=== PATIENT | female | born 1965 | race Caucasian/White ===

== ENCOUNTER → 2018-10-10 | Outpatient (CLI) | payer BC ==
--- NOTE | 2018-10-12 11:13 | MM ---
Reason for exam: screening (asymptomatic). Last mammogram was performed 2 years and 4 months ago. History: Patient is postmenopausal. Family history of breast cancer in maternal aunt at age 50. Physical Findings: A clinical breast exam by your physician is recommended on an annual basis and results should be correlated with mammographic findings. MG Screening Mammo w CAD Bilateral CC and MLO view(s) were taken. Prior study comparison: June 25, 2016, bilateral MG screening mammo w CAD. June 21, 2015, bilateral MG screening mammo w CAD. There are scattered fibroglandular densities. No suspicious abnormality. No significant changes when compared with prior studies. ASSESSMENT: Negative, BI-RAD 1 RECOMMENDATION: Routine screening mammogram of both breasts in 1 year.
== END | disposition home or self-care (01) ==
LOC: RADMAMWWP 06:48
PROVIDERS: ATTEND Family Medicine
DX: Z12.31 Encounter for screening mammogram for malignant neoplasm of breast (principal)
CPT/HCPCS: 77067

== ENCOUNTER → 2020-02-22 | Outpatient (CLI) | payer BC ==
--- NOTE | 2020-02-23 09:20 | MM ---
Reason for exam: screening (asymptomatic). Last mammogram was performed 1 year and 4 months ago. History: Patient is postmenopausal. Family history of breast cancer in maternal aunt at age 50. Physical Findings: A clinical breast exam by your physician is recommended on an annual basis and results should be correlated with mammographic findings. MG 3D Screening Mammo W/Cad Bilateral CC and MLO view(s) were taken. XCCL view(s) were taken of the left breast. Prior study comparison: October 10, 2018, bilateral MG screening mammo w CAD. June 25, 2016, bilateral MG screening mammo w CAD. There are scattered fibroglandular densities. There is chronic nodularity in the left breast. Benign oil cyst and a few punctate calcifications. No significant changes when compared with prior studies. ASSESSMENT: Negative, BI-RAD 1 RECOMMENDATION: Routine screening mammogram of both breasts in 1 year.
== END | disposition home or self-care (01) ==
LOC: RADMAMWWP 07:07
PROVIDERS: ATTEND Family Medicine
DX: Z12.31 Encounter for screening mammogram for malignant neoplasm of breast (principal)
CPT/HCPCS: 77063; 77067

== ENCOUNTER → 2020-05-22 | Outpatient (CLI) | payer BC ==
--- NOTE | 2020-05-22 11:58 | US ---
EXAMINATION TYPE: US thyroid st tissue head/neck DATE OF EXAM: 05/22/2020 COMPARISON: NONE CLINICAL HISTORY: K11.20 Sialoadenitis. US thyroid, US neck at left palpable submandibular area, US P arotid Gland. Patient stated is being treated for sinusitis. 1) Thyroid GLAND SIZE: Right Lobe: 4.3 x 1.7 x 1.6 cm Overall Parenchyma: homogenous Left Lobe: 4.4 x 1.7 x 1.2 cm Overall Parenchyma: homogeneous Isthmus Thickness: 0.2 cm No nodules are seen in thyroid gland 2) Neck US for submandibular palpable: inferior to left gland is lymph node = 0.7 x 0.8 x 0.8cm. Mul tiple left lymph nodes are seen within this homogeneous glandular tissue, medially and superiorly. I nferior to right neck submandibular gland is lymph node = 1.5 x 0.8 x 0.4cm. 3) Parotid US: Anterior/ medial to right ear 2 lymph nodes are seen with larger node = 0.8 x 0.6 x 0 .4cm. No masses are seen in Left Parotid Gland. IMPRESSION: As above
== END | disposition home or self-care (01) ==
LOC: RADUSWWP 10:53
PROVIDERS: ATTEND Nurse Practitioner Adult Health
DX: K11.20 Sialoadenitis, unspecified (principal)
CPT/HCPCS: 76536

== ENCOUNTER → 2020-05-24 | Outpatient (CLI) | payer BC ==
--- NOTE | 2020-05-24 13:54 | CT ---
EXAMINATION TYPE: CT soft tissue neck w con DATE OF EXAM: 05/24/2020 COMPARISON: None HISTORY: Sialoadenitis, unspecified CT DLP: 607 mGycm CONTRAST: CT scan of the neck is performed with IV Contrast, patient injected with 100 ml mL of Isovue 300. Contrast enhanced CT of the neck was performed from the skull base through the lung apices. AIRWAY: The supraglottic, glottic, and subglottic portions of the airway appear patent and free of mass. SALIVARY GLANDS: At the site of clinical concern which corresponds to the left parotid gland there is edema and increased attenuation throughout the parotid gland likely reflective of sialoadenitis. The re is no evidence for abscess. The submandibular glands are free of mass or inflammatory process. THYROID GLAND: No nodules or masses seen. LYMPH NODES: No adenopathy seen greater than 1cm. LUNG APICES: No nodule or mass is seen. OTHER: Vascular structures are patent. No significant degenerative change of the cervical spine. N o abscess seen. IMPRESSION: Edema and mild inflammatory change of the left parotid gland felt to reflect parotitis.
== END | disposition home or self-care (01) ==
LOC: RADCTMAIN 13:00
PROVIDERS: ATTEND Family Medicine
DX: K11.20 Sialoadenitis, unspecified (principal)
CPT/HCPCS: 70491; Q9967

== ENCOUNTER → 2020-07-08 | Outpatient (CLI) | payer BC ==
--- NOTE | 2020-07-09 11:16 | US ---
EXAMINATION TYPE: US thyroid st tissue head/neck DATE OF EXAM: 07/08/2020 COMPARISON: 05/22/2020 ultrasound CLINICAL HISTORY: K11.20 SLALOADENITIS. Follow up on palpable/patient area of concern on left neck Left lateral neck scanned at area of concern. Multiple lymph nodes visualized. 1- within parotid= 1.1 x 0.6 x 0.5 cm 2- within lateral parotid= 0.9 x 0.6 x 0.5 cm 3- lateral neck = 1.4 x 0.6 x 0.4 cm No enlarging adenopathy is identified. Contralateral image taken. IMPRESSION: Left parotid appears normal with internal and adjacent small lymph nodes.
== END | disposition home or self-care (01) ==
LOC: RADUSWWP 16:47
PROVIDERS: ATTEND Family Medicine
DX: K11.20 Sialoadenitis, unspecified (principal)
CPT/HCPCS: 76536

== ENCOUNTER → 2021-04-02 | Outpatient (CLI) | payer BC ==
--- NOTE | 2021-04-03 11:20 | MM ---
Reason for exam: screening (asymptomatic). Last mammogram was performed 1 year and 1 month ago. History: Patient is postmenopausal. Family history of breast cancer in maternal aunt at age 50. Physical Findings: A clinical breast exam by your physician is recommended on an annual basis and results should be correlated with mammographic findings. MG Screening Mammo w CAD Bilateral CC and MLO view(s) were taken. Prior study comparison: February 22, 2020, bilateral MG 3d screening mammo w/cad. October 10, 2018, bilateral MG screening mammo w CAD. There are scattered fibroglandular densities. No significant changes when compared with prior studies. ASSESSMENT: Benign, BI-RAD 2 RECOMMENDATION: Routine screening mammogram of both breasts in 1 year.
== END | disposition home or self-care (01) ==
LOC: RADMAMWWP 07:01
PROVIDERS: ATTEND Family Medicine
DX: Z12.31 Encounter for screening mammogram for malignant neoplasm of breast (principal); Z80.3 Family history of malignant neoplasm of breast
CPT/HCPCS: 77067

== ENCOUNTER → 2022-04-06 | Outpatient (CLI) | payer BC ==
--- NOTE | 2022-04-06 09:06 | MM ---
Reason for Exam: Screening (asymptomatic). Last mammogram was performed 1 year(s) and 1 month(s) ago. Patient History: Menarche at age 18. First Full-Term at age 28. Postmenopausal. Maternal aunt had breast cancer, age 50. Maternal grandmother had breast cancer under age 50. Risk Values: Diana 5 year model risk: 1.2%. NCI Lifetime model risk: 8.5%. Prior Study Comparison: 10/10/2018 Bilateral Screening Mammogram, [facility]. 02/22/2020 Bilateral Screening Mammogram, [facility]. 04/02/2021 Bilateral Screening Mammogram, [facility]. Tissue Density: There are scattered fibroglandular densities. Findings: Analyzed By CAD. Some loosely grouped benign-appearing round calcifications throughout the bilateral breasts are identified. There is no suspicious group of microcalcifications or new suspicious mass in either breast. Overall Assessment: Benign, BI-RAD 2 Management: Screening Mammogram of both breasts in 1 year. A clinical breast exam by your physician is recommended on an annual basis and results should be correlated with mammographic findings. Electronically signed and approved by: Maxi Bowles M.D.
== END | disposition home or self-care (01) ==
LOC: RADMAMWWP 07:14
PROVIDERS: ATTEND Family Medicine
DX: Z12.31 Encounter for screening mammogram for malignant neoplasm of breast (principal)
CPT/HCPCS: 77067

== ENCOUNTER → 2023-06-14 | Outpatient (CLI) | payer BC ==
--- NOTE | 2023-06-15 15:45 | MM ---
Reason for Exam: Screening (asymptomatic). Last mammogram was performed 1 year(s) and 2 month(s) ago. Patient History: Menarche at age 18. First Full-Term at age 28. Postmenopausal. Maternal aunt had breast cancer, age 50. Maternal grandmother had breast cancer under age 50. Risk Values: Diana 5 year model risk: 1.2%. NCI Lifetime model risk: 8.3%. Prior Study Comparison: 02/22/2020 Bilateral Screening Mammogram, [facility]. 04/02/2021 Bilateral Screening Mammogram, [facility]. 04/06/2022 Bilateral MG screening mammo w CAD, [facility]. Tissue Density: There are scattered fibroglandular densities. Findings: Analyzed By CAD. Pattern appears symmetrical and stable. No significant interval change is evident. Benign calcifications are present bilaterally. Chronic nodularity is within the left breast this may be slightly more prominent than on the comparison. Recommend mammogram and ultrasound for additional workup No suspicious groups of microcalcifications, spiculated or lobular masses, architectural distortion or other secondary signs of malignancy are mammographically apparent. Overall Assessment: Incomplete: need additional imaging evaluation, BI-RAD 0 Management: Diagnostic Mammogram of the left breast. Diagnostic Breast Ultrasound of the left breast. A negative mammogram report should not preclude additional follow up of suspicious palpable abnormalities. Patient should continue monthly self breast exam. A clinical breast exam by your physician is recommended on an annual basis and results should be correlated with mammographic findings. Electronically signed and approved by: Tomas Weaver D.O. Radiologis
== END | disposition home or self-care (01) ==
LOC: RADMAMWWP 07:12
PROVIDERS: ATTEND Family Medicine
DX: Z12.31 Encounter for screening mammogram for malignant neoplasm of breast (principal); Z78.0 Asymptomatic menopausal state; Z80.3 Family history of malignant neoplasm of breast
CPT/HCPCS: 77067

== ENCOUNTER → 2023-07-07 | Outpatient (CLI) | payer BC ==
--- NOTE | 2023-07-07 14:46 | MM ---
Reason for Exam: Additional evaluation requested from abnormal screening. Last screening mammogram was performed less than 1 month ago. Patient History: Menarche at age 18. First Full-Term at age 28. Postmenopausal. Maternal aunt had breast cancer, age 50. Maternal grandmother had breast cancer under age 50. Risk Values: Diana 5 year model risk: 1.2%. NCI Lifetime model risk: 8.3%. Prior Study Comparison: 04/02/2021 Bilateral Screening Mammogram, [facility]. 04/06/2022 Bilateral MG screening mammo w CAD, [facility]. 06/14/2023 Bilateral MG screening mammo w CAD, [facility]. Tissue Density: Left: There are scattered fibroglandular densities. Findings: Analyzed By CAD. Pattern appears stable. There is a persistent nodule upper outer quadrant left breast 12 cm nipple. Evaluation with ultrasound is recommended. Overall Assessment: Incomplete: need additional imaging evaluation, BI-RAD 0 Management: Diagnostic Breast Ultrasound of the left breast. A negative mammogram report should not preclude additional follow up of suspicious palpable abnormalities. Patient should continue monthly self breast exam. A clinical breast exam by your physician is recommended on an annual basis and results should be correlated with mammographic findings. Electronically signed and approved by: Tomas Weaver D.O. Radiologis
--- NOTE | 2023-07-07 15:40 | USB ---
Reason for Exam: Additional evaluation requested from abnormal screening. Patient History: Menarche at age 18. First Full-Term at age 28. Postmenopausal. Maternal aunt had breast cancer, age 50. Maternal grandmother had breast cancer under age 50. Risk Values: Diana 5 year model risk: 1.2%. NCI Lifetime model risk: 8.3%. Technique: Method: Targeted. Prior Study Comparison: 04/02/2021 Bilateral Screening Mammogram, [facility]. 04/06/2022 Bilateral MG screening mammo w CAD, [facility]. 06/14/2023 Bilateral MG screening mammo w CAD, [facility]. Findings: The upper outer quadrant of the left breast, the axilla of the left breast and the retroareolar of the left breast were scanned. At the 2:00 position there are couple of shadowing areas may correlate with calcifications on mammography. At the 3:00 position 12 cm from nipple there is a small hypoechoic area with posterior wall enhancement may be a small cyst. Couple of tiny adjacent cysts are present. This area measures approximately 0.3 cm in diameter and appears to correlate with the mammographic finding. At the 3:00 position 4 cm from nipple there is a 0.2 x 0.3 x 0.3 cm anechoic area with some shadowing. A corresponding mammographic calcifications is not identified. Consider biopsy. Overall Assessment: Suspicious, BI-RAD 4 Management: Ultrasound Core Biopsy of the left breast. A clinical breast exam by your physician is recommended on an annual basis and results should be correlated with mammographic findings. This exam should not preclude additional follow-up of suspicious palpable abnormalities. Results were given to the patient verbally at the time of exam. Electronically signed and approved by: Tomas Weaver D.O. Radiologis
== END | disposition home or self-care (01) ==
LOC: RADMAMWWP 14:06
PROVIDERS: ATTEND Family Medicine
DX: R92.322 Mammographic fibroglandular density, left breast (principal); N60.01 Solitary cyst of right breast; N60.02 Solitary cyst of left breast; Z78.0 Asymptomatic menopausal state; Z80.3 Family history of malignant neoplasm of breast
CPT/HCPCS: 77061; 77065

== ENCOUNTER → 2023-07-20 | Day surgery (SDC) | payer BC ==
--- NOTE | 2023-07-20 13:50 | USB ---
Risk Values: Diana 5 year model risk: 1.2%. NCI Lifetime model risk: 8.3%. Findings: Review of prior imaging prior to biopsy was performed in the lesions are considered stable dating back to at least 2012. The procedure was canceled at that time. The patient was agreeable. Management: Screening Mammogram of both breasts in 1 year. A clinical breast exam by your physician is recommended on an annual basis and results should be correlated with mammographic findings. This exam should not preclude additional follow-up of suspicious palpable abnormalities. Results were given to the patient verbally at the time of exam. Electronically signed and approved by: Mike Cordon DO
== END ==
LOC: RADUSWWP 12:40
PROVIDERS: ATTEND Family Medicine
DX: Z53.8 Procedure and treatment not carried out for other reasons (principal); R92.8 Other abnormal and inconclusive findings on diagnostic imaging of breast

== ENCOUNTER → 2025-01-04 | Outpatient (CLI) | payer BC ==
--- NOTE | 2025-01-08 07:44 | MM ---
Reason for Exam: Screening (asymptomatic). Last mammogram was performed 1 year(s) and 7 month(s) ago. Patient History: Menarche at age 18. First Full-Term at age 28. Postmenopausal. 07/20/2023, US discontinued breast bx LT on the left side. Maternal aunt had breast cancer, age 50. Maternal grandmother had breast cancer under age 50. Risk Values: Diana 5 year model risk: 1.3%. NCI Lifetime model risk: 8.0%. Prior Study Comparison: 04/06/2022 Bilateral MG screening mammo w CAD, [facility]. 06/14/2023 Bilateral MG screening mammo w CAD, [facility]. 07/07/2023 Left MG 3D work up w/cad LT, [facility]. Tissue Density: There are scattered areas of fibroglandular density. Findings: Analyzed By CAD. There are a few scattered small benign-appearing round calcifications bilaterally redemonstrated. There is no suspicious group of microcalcifications or new suspicious mass in either breast. Overall Assessment: Benign, BI-RAD 2 Management: Screening Mammogram of both breasts in 1 year. . Patient should continue monthly self-breast exams. A clinical breast exam by your physician is recommended on an annual basis. This exam should not preclude additional follow-up of suspicious palpable abnormalities. Note on Diana scores and lifetime risk: 1. A Diana score greater than 3% is considered moderate risk. If this is the case, consider specialist referral to assess eligibility for a risk reducing agent. 2. If overall lifetime risk for the development of breast cancer is 20% or higher, the patient may qualify for future screening with alternating mammogram and breast MRI. [facility], , 01/08/2025 7:41 AM. Electronically signed and approved by: Maxi Bowles M.D.
== END | disposition home or self-care (01) ==
LOC: RADMAMWWP 16:15
PROVIDERS: ATTEND Family Medicine
DX: Z12.31 Encounter for screening mammogram for malignant neoplasm of breast (principal); R92.323 Mammographic fibroglandular density, bilateral breasts; R92.1 Mammographic calcification found on diagnostic imaging of breast; Z80.3 Family history of malignant neoplasm of breast; Z78.0 Asymptomatic menopausal state
CPT/HCPCS: 77067

== ENCOUNTER → 2025-01-25 | Outpatient (CLI) | payer BC ==
--- NOTE | 2025-01-25 19:19 | US ---
EXAMINATION TYPE: US thyroid st tissue head/neck DATE OF EXAM: 01/25/2025 COMPARISON: US 2020 CLINICAL INDICATION: Female, 59 years old with history of E03.9 HYPOTHYROIDISM TECHNIQUE: Grayscale and color Doppler imaging of the thyroid gland. FINDINGS: GLAND SIZE: Right Lobe: 4.6 x 1.4 x 1.5 cm Overall Parenchyma: heterogeneous Left Lobe: 4.6 x 1.7 x 1.3 cm Overall Parenchyma: heterogeneous Isthmus Thickness: 0.2 cm NODULES RIGHT: # of nodules measured on right: 0 LEFT: # of nodules measured on left: 0 ISTHMUS: # of nodules measured in the isthmus: 0 Bilateral neck scanned, no evidence of lymphadenopathy. IMPRESSION: Heterogeneous thyroid gland could reflect diffuse thyroiditis or chronic hypothyroidism. No discrete nodules seen. [facility], Workstation: [facility]PITALClever CloudRENAN, 01/25/2025 7:17 PM
== END | disposition home or self-care (01) ==
LOC: RADUSWWP 14:44
PROVIDERS: ATTEND Family Medicine
DX: E03.9 Hypothyroidism, unspecified (principal); E07.89 Other specified disorders of thyroid
CPT/HCPCS: 76536